=== PATIENT | female | born 1980 | race Caucasian/White ===

== ENCOUNTER 2018-08-12 14:37 | Outpatient (CLI) | payer OTHER, SELFPAY | END 2018-08-12 14:54 | disposition home or self-care (01) | LOC: UTC.OUT 14:38 | PROVIDERS: Visit Provider Psychiatry & Neurology Clinical Neurophysiology | DX: Z23 Encounter for immunization (principal) ==

== ENCOUNTER → 2021-02-21 08:28 | Outpatient (CLI) | payer OTHER, SELFPAY ==
[2021-02-21 08:56] LABS: Coronavirus 19, PCR Not Detected (NotDetected); Influenza A, PCR Not Detected (NotDetected); Influenza B, PCR Not Detected (NotDetected)
== END ==
PROVIDERS: PCP Family Medicine; Visit Provider Nurse Practitioner
DX: Z20.822 Contact with and (suspected) exposure to COVID-19 (principal)
CPT/HCPCS: C9803; U0003; U0005

== ENCOUNTER 2021-09-13 08:38 | Emergency (ER) | payer OTHER, SELFPAY ==
--- NOTE | 2021-09-13 08:43 | PC.NURSE ---
pt provided with paperwork to fill out
--- NOTE | 2021-09-13 08:48 | PC.NURSE ---
pt brought back to room 1
[2021-09-13 08:53] VITALS: BP 133/92; PULSE 88; RESP 18; TEMP 36.8; O2SAT 97; BMI 38.8
[2021-09-13 09:00] LABS: UTC Strep Screen (Rapid) Negative (Negative)
--- NOTE | 2021-09-13 09:00 | HMH.EDUTC ---
[facility] Disposition Clinical Impression: Viral syndrome, Exposure to COVID-19 virus Disposition: Home, Self-Care Condition on Discharge: Good Instructions: DI for Viral Syndrome, DI for COVID-19 (Suspected or Confirmed ), Preventing the Spread of Coronavirus Discharge Instructions Additional Instructions: Drink plenty of fluids. Take tylenol or ibuprofen for pain or fever. Take the medications as directed. Follow up with your regular doctor. GO TO THE ER FOR ANY WORSENING SYMPTOMS Quarantine until you know the results of your covid-19 test. Notify your school or workplace of your results and follow their instructions regarding return to work/school. Prescriptions: Ondansetron [Zofran 4mg ODT] 4 mg PO Q8HP PRN #12 tab PRN Reason: Nausea Transmission Status: Received by [facility] Benzonatate [Benzonatate 100mg cap] 100 mg PO TIDP PRN #30 cap PRN Reason: Cough Transmission Status: Received by [facility] Referrals: Oskar Perdomo MD [Primary Care Provider] - Forms: Work/School Release Time of Disposition: 09:08 Medical Decision Making - Medical Records Medical records reviewed: No: I reviewed the patient's medical records. - Andriy Inquiry Pt receiving controlled substance: No Vital Signs: 09/13/21 08:53 09/13/21 09:24 Temperature 98.2 F 98.2 F Temperature Source Oral Oral Pulse Rate 85 Pulse Rate [Left Radial] 88 Respiratory Rate 18 17 Blood Pressure 130/86 Blood Pressure [Right Arm] 133/92 H Blood Pressure Mean [Right Arm] 105 02 Sat by Pulse Oximetry 97 Oxygen Delivery Method Room Air Room Air - Lab Data Lab results reviewed: Yes: I reviewed the patient's lab results. Lab Results 09/13/21 08:51: Strep Scn Rapid Clinic Negative Orders (Tests/Meds): ORDERS Category Date Time Status Covid-19 Nasal PCR ([facility]) Routine Lab 09/13/21 08:52 Received Strep Screen Confirmation Stat Micro 09/13/21 08:51 Received [facility] HPI - General Stated complaint: Congestion;scratchy throat Time Seen by Provider: 09/13/21 09:00 Mode of Arrival: Ambulatory Source of Information: Patient Limitations: No Limitations Description of Symptoms (Recalled from Triage Doc. by RN): pt to [facility] c/o congestion and a sore throat since last night. HEENT Symptoms (Recalled from RN notes): Yes Resp Symptoms (Recalled from RN notes): Yes Skin Symptoms (Recalled from RN notes): No MS Symptoms (Recalled from RN notes): No Functional Status (Recalled from RN notes): na - History of Present Illness Provider Complaint: She states that she started feeling bad last night. She has had body aches, chills, low grade fever, scratchy throat and malaise. Both her mother and father have been sick with covid-19 and she has been around them. - Related Data Previous Rx's Medication Instructions Recorded Benzonatate [Benzonatate 100mg 100 mg PO TIDP PRN #30 cap 09/13/21 cap] Ondansetron [Zofran 4mg ODT] 4 mg PO Q8HP PRN #12 tab 09/13/21 Allergies Allergy/AdvReac Type Severity Reaction Status Date / Time Penicillins Allergy Verified 09/13/21 08:53 Sulfa (Sulfonamide Allergy Verified 09/13/21 08:53 Antibiotics) - Worker's Comp Is this a Worker's Comp case?: No [facility] History - Hepatitis A Screen Attestation statement:: This patient has been screened for Hepatitis A risk factors. 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
--- NOTE | 2021-09-13 09:02 | PC.NURSE ---
loom control chain builder at the bedside
[2021-09-13 09:24] VITALS: BP 130/86; PULSE 85; RESP 17; TEMP 36.8; O2SAT 98
== END 2021-09-13 09:25 | disposition home or self-care (01) ==
PROVIDERS: Emergency Provider Nurse Practitioner Family; PCP Family Medicine
DX: Z20.822 Contact with and (suspected) exposure to COVID-19 (principal); J02.9 Acute pharyngitis, unspecified; R09.89 Other specified symptoms and signs involving the circulatory and respiratory systems
CPT/HCPCS: 87880; 99212; C9803; G0463; U0003; U0005

== ENCOUNTER → 2022-05-01 10:00 | Outpatient (CLI) | payer OTHER, SELFPAY ==
[2022-05-01 10:41] LABS: MANUAL DIFFERENTIAL MANUAL DIFFERENTIAL (MANUAL DIFF); Microscopic, Urine URINE MICROSCOPIC (MICROSCOPIC)
[2022-05-01 10:54] LABS: Appearance,Urine CLEAR (Clear); Bilirubin,Urine Negative (Negative); Blood, Urine Negative (Negative); Color,Urine YELLOW (Yellow); Glucose,Urine (UA) Negative (Negative); Ketones,Urine Negative (Negative); Leukocyte Esterase,Urine Negative (Negative); Nitrate,Urine Negative (Negative); Protein,Urine Negative (Negative); Specific Gravity, Urine 1.025 (1.005-1.030); Urobilinogen,Urine 0.2 EU/dl (0.2)
[2022-05-01 10:57] LABS: Basophils # 0.1 K/mm3 (0-0.2); Basophils % 0.7 % (0.1-2.0); Eosinophils # 0.1 K/mm3 (0.0-0.4); Eosinophils % 1.1 % (0.1-12.0); Hematocrit 35.5 % (37.0-47.0); Hemoglobin 11.7 g/dL (12.2-16.2); Lymphocytes # 1.8 K/mm3 (0.7-4.5); Lymphocytes % 29.2 % (10-50); Mean Corpuscular HGB Conc 32.8 g/dL (31.8-35.4); Mean Corpuscular Hemoglobin 28.7 pg (27.0-31.2); Mean Corpuscular Volume 87.5 fl (81-99); Monocytes # 0.3 K/mm3 (0.1-1.0); Monocytes % 4.5 % (1.7-9.3); Neutrophils # 4.1 K/mm3 (1.8-7.8); Neutrophils % 64.5 % (37.0-80.0); Platelet Count 267 K/mm3 (142-424); Red Blood Count 4.06 M/mm3 (4.20-5.40); Red Cell Distribution Width 13.2 % (11.5-17.5); White Blood Count 6.3 K/mm3 (4.8-10.8)
[2022-05-01 11:05] LABS: Bacteria,Urine 3+ /lpf; RBC,Urine Occasional #/hpf (0-3)
[2022-05-01 11:08] LABS: Chloride 104 mmol/L (98-107); Sodium 139 mmol/L (136-145)
[2022-05-01 11:09] LABS: Hemoglobin A1C 5.1 % (4.0-6.0); Potassium 4.2 mmoL/L (3.5-5.1)
[2022-05-01 11:11] LABS: Alanine Aminotransferase 17 U/L (12-78); Albumin Level 4.2 g/dl (3.5-5.0); Albumin/Globulin Ratio 1.4 (1.1-1.8); Alkaline Phosphatase 105 U/L (38-126); Anion Gap 12.2 mEq/L (5-15); Aspartate Amino Transferase 24 U/L (14-36); Bilirubin,Total 0.4 mg/dl (0.2-1.3); Blood Urea Nitrogen 8 mg/dl (7-17); Calcium 8.5 mg/dl (8.4-10.2); Carbon Dioxide 27 mmol/L (22.0-30.0); Cholesterol 195 mg/dl (140-200); Estimated Glomerular Filt Rate 79 ml/min (>60); GFR (African American) 96 ML/MIN (>60); Globulin 3.1 g/dL (1.3-3.2); Glucose 85 mg/dl (74-100); Iron 33 ug/dL (37-170); Total Protein,Serum 7.3 g/dl (6.3-8.2); Triglycerides 94 mg/dl (30-150); VLDL Cholesterol 19 mg/dL (0-40)
[2022-05-01 11:12] LABS: Chol/HDL Ratio 3.1 (1-3.5); HDL Cholesterol 62 mg/dl (40-60)
[2022-05-01 11:21] LABS: Total Iron Binding Capacity 378 ug/dL (265-497)
[2022-05-01 11:23] LABS: Direct LDL Cholesterol 105.24 mg/dL (100-129)
[2022-05-01 11:43] LABS: Eosinophils % 3 % (0-3); Lymphocytes % 27 % (10-50); Monocytes % 4 % (2-9); Neutrophils % 66 % (42-76); Platelet Estimate Normal; RBC Morphology Normal; Thyroid Stimulating Hormone 1.14 uIU/mL (0.465-4.68); Total Cells Counted 100
== END ==
PROVIDERS: PCP Nurse Practitioner Family; Visit Provider Nurse Practitioner Family
DX: Z00.00 Encounter for general adult medical examination without abnormal findings (principal)
CPT/HCPCS: 36415; 80053; 80061; 81001; 83036; 83540; 83550; 84443; 85007; 85014; 85018; 85048; 85049; 87086; 87088; 87186

== ENCOUNTER → 2022-05-11 12:45 | Outpatient (CLI) | payer OTHER, SELFPAY ==
--- NOTE | 2022-05-11 | CA_ITS ---
APPROVED REPORT Exam: Exercise Treadmill Technologist: Meghan Goode, Ht: 5 ft 0 in Wt: 197 lbs BSA: 1.86 m2 HR: 90 bpm BP: 132/85 mmHg Medical History Medications: Ferrous fumarate,,,,, Stress Test Details Test: Mikel Reason for pharmacologic stress test: physical limitation. HR Resting HR: 112 bpm Max Heart Rate (APMHR): 180.125399 bpm Max HR Achieved: 189 bpm Target HR (85% APMHR): 153.414628 bpm % of APMHR: 105.00 Recovery HR: 108 bpm BP Resting BP: 140/81 mmHg Max BP: 160/90 mmHg Recovery BP: 114.0/54.0 mmHg ECG Resting ECG: NSR Clinical Reason for Termination: Dyspnea Exercise duration: 09:00 min Highest Stage Achieved: III Exercise capacity: 10.1 METs Stress ECG Conclusion 9 min Max HR: 189 % of PM: 123 Max BP:160/90 METs: 10.1 Test stopped due to: SOA Symptoms: No CP Arrhythmias/Ectopy: None ST-T Changes: <1.5mm ST Segment changes Conclusion: Negative Test Summary REST . . . . . . . Sitting REST . . . . . . . Standing REST 03:29 0.0 1.2 112 . 140/ 81 . . Stage 1 01:00 10.0 1.7 121 . . . . Stage 1 02:00 10.0 1.7 133 . . . . Stage 1 03:00 10.0 1.7 143 . 150/ 92 . . Stage 2 01:00 12.0 2.5 146 . . . . Stage 2 02:00 12.0 2.5 155 . 160/ 90 . . Stage 2 03:00 12.0 2.5 160 . 160/ 90 . . Stage 3 01:00 14.0 3.4 175 . . . . Stage 3 02:00 14.0 3.4 181 . . . . Stage 3 03:00 14.0 3.4 186 . . . Stop exercise at 09:00 RECOVERY 01:00 0.0 0.0 150 . . . . RECOVERY 02:00 0.0 0.0 129 . . . . RECOVERY 03:00 0.0 0.0 121 . 151/ 63 . . RECOVERY 04:00 0.0 0.0 113 . 151/ 63 . . RECOVERY 05:00 0.0 0.0 109 . 151/ 63 . . RECOVERY 05:26 0.0 0.0 110 . 114/ 54 . . Electronically signed by : Stone Velarde MD 05/11/2022 14:31:12
--- NOTE | 2022-05-11 12:51 | CA_ITS ---
APPROVED REPORT EXAM: Comprehensive 2D, Doppler, and color-flow Echocardiogram [place] Tower Loader: Myriam Warren RT(R) Ht: 5 ft 0 in Wt: 197lbs BSA: 1.86 BP: 146/94 mmHg Indications: CP, family history of HD, abn EKG Stress Test Details HR Max Heart Rate (APMHR): 180.269772 bpm Target HR (85% APMHR): 153.333203 bpm BP ECG Conclusion Was negative1. Patient exercised on Mikel protocol achieved 10.1 METs of workload on treadmill, the blood pressure response to exercise was adequate, there was no exercise-induced chest discomfort, for ischemia. 2. Resting echocardiogram showed normal left ventricular size and function with no regional wall motion abnormality, estimated ejection fraction 55%, with exercise there is increase in contractility of all the segments of the myocardium with hyperdynamic left ventricular systolic response, no regional wall motion abnormality to suggest underlying ischemic heart disease. 3. Normal exercise stress echo. Normal ejection fraction. Electronically signed by : Stone Velarde MD 05/11/2022 14:35:30
--- NOTE | 2022-05-11 12:51 | CA_ITS ---
APPROVED REPORT EXAM: Comprehensive 2D, Doppler, and color-flow Echocardiogram Felt Washing Machine Tender: Myriam Warren RT(R) Ht: 5 ft 0 in Wt: 197lbs BSA: 1.86 BP: 146/94 mmHg Indications: cp, abn EKG, family history of HD 2D Dimensions LVOT 2.02 cm (M/F) 1.5-2.5 LA Volume 31.80 mL LA Volume Index 17.10 mL/m2 (M/F) 16-34 M-Mode Dimensions RVDd 3.18 cm (0.9-2.6) LA Diam 3.44 cm (1.9-4.0) LVDd 5.19 cm (3.5-5.7) Ao Diam 2.62 cm (2.0-3.7) LVDs 3.83 cm (3.5-5.7) IVSd 0.57 cm (0.6-1.1) PWd 0.64 cm (0.6-1.1) EF (Teich) 51.00% FS 26.20% EDV (Teich) 128.90 mL ESV (Teich) 63.10 mL LV Diastology E Decel Time 157.00 (160-240 msec) E/A Ratio 1.19 Mitral Valve MV A Velocity 63.00 (40-130 cm/s) E/A Ratio 1.19 MV Decel. Time 157.00 (160-240 ms) Left Ventricle Left atrium is normal size left ventricle is normal size, estimated ejection fraction 55% with no regional wall motion abnormality, diastolic parameters are within normal range. Right Ventricle Right atrium and right ventricular normal size and contractility. Aortic Valve Aortic valve is minimally thickened and calcified without aortic stenosis or aortic insufficiency. Mitral Valve Mitral valve is grossly normal, there is trace mitral regurgitation. Tricuspid Valve Tricuspid grossly normal, there is trace tricuspid regurgitation, tricuspid regurgitation jet velocity is inadequate for calculation of the right ventricular systolic pressure. Pulmonic Valve Pulmonic valve is poorly visualized. Great Vessels Aortic root is normal size. Inferior vena cava normal size with normal inspiratory collapse. Pericardium No significant pericardial effusion noted. Conclusion 1. Normal left ventricular size preserved left ventricular systolic function, estimated ejection fraction of 55% with no regional wall motion abnormality, diastolic parameters are within normal range. 2. Trace mitral and tricuspid regurgitation. 3. No significant pericardial effusion noted. 4. Inferior vena cava is normal size with normal inspiratory collapse. Electronically signed by : Stone Velarde MD 05/11/2022 14:33:50
== END ==
PROVIDERS: PCP Nurse Practitioner Family; Visit Provider Nurse Practitioner Family
DX: R07.9 Chest pain, unspecified (principal); R94.31 Abnormal electrocardiogram [ECG] [EKG]; Z82.49 Family history of ischemic heart disease and other diseases of the circulatory system
CPT/HCPCS: 93017; 93306; 93350

== ENCOUNTER → 2022-05-15 10:17 | Outpatient (CLI) | payer OTHER, SELFPAY ==
--- NOTE | 2022-05-15 10:24 | MM_ITS ---
PROCEDURE INFORMATION: Exam: MG Bilateral Screening 3D Mammography Exam date and time: 05/15/2022 10:20 AM Age: 41 years old Clinical indication: Screening mammogram. TECHNIQUE: Imaging protocol: Bilateral Screening tomosynthesis and 2D mammography including computer-aided detection (CAD) when performed. COMPARISON: No relevant prior studies available. FINDINGS: MAMMOGRAPHY: Breast composition: There are scattered areas of fibroglandular density. Mass: None. Architectural distortion: No new or suspicious architectural distortion. Calcifications: No new or suspicious calcifications are present Asymmetric density: No new or suspicious asymmetric density is present Skin thickening: None. Axillary adenopathy: None. IMPRESSION: No mammographic evidence of malignancy. Recommend annual screening mammography unless otherwise clinically indicated. ASSESSMENT: BI-RADS category 1: Negative
== END ==
PROVIDERS: PCP Nurse Practitioner Family; Visit Provider Nurse Practitioner Family
DX: Z12.31 Encounter for screening mammogram for malignant neoplasm of breast (principal)
CPT/HCPCS: 77063; 77067

== ENCOUNTER → 2022-06-28 14:48 | Outpatient (CLI) | payer OTHER, SELFPAY ==
--- NOTE | 2022-06-28 14:48 | US_ITS ---
FINAL REPORT CLINICAL HISTORY: Menorrhagia FINDINGS: Transvaginal sonographic images of the pelvis were obtained. The uterus measures 10.0 x 5.1 x 6.0 cm. The endometrium measures 10 mm. There is a small amount of fluid in the endometrial cavity. The right ovary measures up to 2.9 cm. The left ovary measures up to 2.2 cm. There are small cysts or follicles in both ovaries. IMPRESSION: Small amount of fluid in the endometrial cavity, may be physiologic. Reviewed, Interpreted and Dictated by Rio Zambrano MD Transcribed by Cindy Urbano Authenticated and [facility]
== END ==
PROVIDERS: PCP Nurse Practitioner Family; Visit Provider Nurse Practitioner Obstetrics & Gynecology
DX: N92.0 Excessive and frequent menstruation with regular cycle (principal)
CPT/HCPCS: 76830

== ENCOUNTER 2022-11-05 08:08 | Emergency (ER) | payer OTHER, SELFPAY ==
[2022-11-05 08:45] VITALS: BP 141/94; PULSE 97; RESP 20; TEMP 36.4; O2SAT 97; BMI 38.9
--- NOTE | 2022-11-05 08:58 | EXP.UTC ---
Discharge Plan Disposition Patient Disposition: Home, Self-Care Condition: Good Prescriptions Prescriptions: New azithromycin [Zithromax Z-Udsty] 250 mg tablet See Rx Instructions .ROUTE .COMPLEX 5 Days Qty: 6 0RF Rx Instructions: For 250 mg dose pack: take 500 mg today (day 1), then 250 mg for 4 days (days 2-5) methylprednisolone [Medrol (Dusty)] 4 mg tablets,dose pack See Rx Instructions .Route .COMPLEX 6 Days Qty: 21 0RF Rx Instructions: taper pack; fluticasone propionate [Flonase Allergy Relief] 50 mcg/actuation spray,suspension 1 spray intranasal DAILY Qty: 16 0RF Rx Instructions: administer into each nostril No Action omeprazole 40 mg capsule,delayed release(DR/EC) 40 mg PO DAILY Qty: 90 3RF ferrous fumarate 325 mg (106 mg iron) tablet 325 mg PO DAILY norgestimate-ethinyl estradiol [Sprintec (28)] 0.25-35 mg-mcg tablet 1 tab PO DAILY Qty: 28 11RF Referrals Follow up/Referrals: Mayra Angel APRN [Primary Care Provider] - See instructions Activity Restrictions/Add. Instructions Additional Instructions/Restrictions: *Monitor Temp, Over the counter Motrin or Tylenol as directed/as needed Tylenol every 4 hours and Motrin every 6 hours (as long as your family doctor has told you that you can take it) for fever or pain. and straight to ER if unable to lower temp less than 101.0 after medication given *Warm salt water gargles may help to soothe the throat *Throat Lozenges? *Warm fluids like tea with honey may help to soothe the throat? *Sleep elevated *Humidifier/Vaporizer *Flonase 2 sprays in each nostril daily but be aware that it may take 2-3 days before you notice improvement Follow up IMMEDIATELY for new or worsening symptoms or no Noticeable improvement over the next 48-72 hours. 911 for difficulty breathing or swallowing Clinical Impressions Clinical Impression: Sinus infection Qualifiers: Sinusitis location: unspecified location Chronicity: unspecified Qualified Code(s): J32.9 - Chronic sinusitis, unspecified Instructions Patient Instructions: DI for Sinusitis, Sinusitis Discharge ED Provider: Louisa Gupta [facility] HPI General Stated complaint: congestion Mode of Arrival: Ambulatory Source of Information: Patient Limitations: No Limitations Time Seen by Provider: 11/05/22 08:58 Description of Symptoms (Recalled from Triage Doc. by RN): PATIENT C/O CONGESTION AND HEADACHE SINCE YESTERDAY HEENT Symptoms (Recalled from RN notes): Yes Resp Symptoms (Recalled from RN notes): No Skin Symptoms (Recalled from RN notes): No MS Symptoms (Recalled from RN notes): No Functional Status (Recalled from RN notes): WNL History of Present Illness Provider Complaint: Patient states that she thinks she has a sinus infection States that for two weeks she has been fighting sinus congestion and pressure that got worse for the last couple of days so today she came in Related Data Home Medications Medication Instructions Recorded Confirmed ferrous fumarate 325 mg (106 mg 325 mg PO DAILY 05/03/22 08/29/22 iron) tablet Previous Rx's Medication Instructions Recorded omeprazole 40 mg capsule,delayed 40 mg PO DAILY #90 caps 05/17/22 release norgestimate 0.25 mg-ethinyl 1 tab PO DAILY #28 tabs 06/27/22 estradiol 35 mcg tablet (Sprintec (28)) azithromycin 250 mg tablet See Rx Instructions PO .COMPLEX 5 11/05/22 (Zithromax Z-Dusty) days #6 tabs fluticasone propionate 50 1 spray intranasal DAILY #16 grams 11/05/22 mcg/actuation nasal spray,suspension (Flonase Allergy Relief) methylprednisolone 4 mg tablets in See Rx Instructions .Route 11/05/22 a dose pack (Medrol (Dusty)) .COMPLEX 6 days #21 tabs Allergies Allergy/AdvReac Type Severity Reaction Status Date / Time Penicillins Allergy Verified 08/29/22 15:16 Sulfa (Sulfonamide Allergy Verified 08/29/22 15:16 Antibiotics) Worker's Comp Is t
[2022-11-05 09:08] VITALS: BP 141/94; PULSE 97; RESP 20; TEMP 36.4; O2SAT 97
== END 2022-11-05 09:11 | disposition home or self-care (01) ==
PROVIDERS: Emergency Provider Nurse Practitioner; PCP Nurse Practitioner Family
DX: J01.90 Acute sinusitis, unspecified (principal); I10 Essential (primary) hypertension
CPT/HCPCS: 99212; 99214; G0463

== ENCOUNTER 2023-01-27 19:01 | Emergency (ER) | payer OTHER, SELFPAY ==
[2023-01-27 19:10] VITALS: BP 129/87; PULSE 134; RESP 18; TEMP 37.2; O2SAT 95; BMI 39.0
--- NOTE | 2023-01-27 19:12 | EXP.UTC ---
Discharge Plan Prescriptions Prescriptions: No Action omeprazole 40 mg capsule,delayed release(DR/EC) 40 mg PO DAILY Qty: 90 3RF ferrous fumarate 325 mg (106 mg iron) tablet 325 mg PO DAILY norgestimate-ethinyl estradiol [Sprintec (28)] 0.25-35 mg-mcg tablet 1 tab PO DAILY Qty: 28 11RF Referrals Follow up/Referrals: Mayra Angel APRN [Primary Care Provider] - See instructions Discharge ED Provider: Bobby Blair [facility] [place] General Stated complaint: fever, LAUREN, body aches Time Seen by Provider: 01/27/23 19:26 History of Present Illness Provider Complaint: She states that for the past 1 day she has had a low grade fever, chills, headache and body aches. She denies significant chest or sinus congestion. Related Data Home Medications Medication Instructions Recorded Confirmed ferrous fumarate 325 mg (106 mg 325 mg PO DAILY 05/03/22 01/27/23 iron) tablet Previous Rx's Medication Instructions Recorded omeprazole 40 mg capsule,delayed 40 mg PO DAILY #90 caps 05/17/22 release norgestimate 0.25 mg-ethinyl 1 tab PO DAILY #28 tabs 06/27/22 estradiol 35 mcg tablet (Sprintec (28)) Allergies Allergy/AdvReac Type Severity Reaction Status Date / Time Penicillins Allergy Verified 01/27/23 19:13 Sulfa (Sulfonamide Allergy Verified 01/27/23 19:13 Antibiotics) [facility] Disclaimer: The information contained in this section may have been updated after the patient was seen, as this information can be updated by other users. Medical History Abnormal electrocardiogram [ECG] [EKG] Exposure to COVID-19 virus Family history of ischemic heart disease HTN (hypertension), benign Need for hepatitis A immunization No active medical problems Viral syndrome Surgical History Encounter for Essure implantation Family History Father Diabetes Heart attack Hypertension Hyperlipidemia Coronary artery disease Mother Coronary artery disease Diabetes Hyperlipidemia Social History Smoking Status: Never smoker alcohol intake: never substance use type: denies use current occupational status: employed Travel in the last 8 weeks: Inside the [place] household members: spouse marital status: number of children: 2 ROS Obtained: Yes All systems reviewed & no additional complaints except as documented Constitutional Constitutional: Reports chills and Reports fever(s) Eyes Eyes: Denies eye discharge ENT Ears, Nose, Mouth, and Throat: Reports as per HPI Cardiovascular Cardiovascular: Denies chest pain Respiratory Respiratory: Denies chest congestion and Reports cough Gastrointestinal Gastrointestingal: Reports nausea; Denies abdominal pain, constipation, cramping, diarrhea or vomiting Musculoskeletal Musculoskeletal: Denies arthralgias Integumentary/Breasts Skin/Breast: Denies rash Neurologic Neurologic: Denies paresthesias Physical Exam General General appearance: alert and in no apparent distress Head Head exam: atraumatic, normocephalic and normal inspection Eye Eye exam: Present normal appearance, PERRL and EOMI ENT ENT exam: Present normal exam, normal oropharynx, mucous membranes moist, TM's normal bilaterally and normal external ear exam Neck Neck exam: Present normal inspection, full ROM and trachea midline; Absent meningismus or lymphadenopathy Chest Chest inspection: Present normal inspection and symmetric chest wall rise; Absent tenderness Respiratory Respiratory exam: Present normal lung sounds bilaterally; Absent respiratory distress Cardiovascular Cardiovascular exam: Present regular rate and normal rhythm; Absent JVD Abdominal Exam Abdominal exam: Present soft and normal bowel sounds; Absent distention, tenderness or guarding Extremiti
[2023-01-27 19:20] LABS: UTC Influenza A Antigen Negative (Negative)
[2023-01-27 19:21] LABS: UTC Influenza B Antigen Negative (Negative)
[2023-01-27 19:46] VITALS: BP 168/84; PULSE 92; RESP 18; TEMP 36.9; O2SAT 100
== END 2023-01-27 19:46 | disposition home or self-care (01) ==
PROVIDERS: Emergency Provider Nurse Practitioner Family; PCP Nurse Practitioner Family
DX: U07.1 COVID-19 (principal); R50.9 Fever, unspecified; R51.9 Headache, unspecified; M79.18 Myalgia, other site; I10 Essential (primary) hypertension
CPT/HCPCS: 87635; 87804; 99212; 99214; G0463

== ENCOUNTER 2023-05-02 08:20 | Emergency (ER) | payer OTHER, SELFPAY ==
[2023-05-02] VITALS (11 sets, daily range): BP systolic 110–172; BP diastolic 69–100; PULSE 80–105; RESP 14–24; TEMP 36.7–36.9; O2SAT 95–100; BMI 37.0
--- NOTE | 2023-05-02 08:26 | ECG_ITS ---
APPROVED REPORT Exam: Resting ECG HR:87 bpm ECG Measurements Heart Rate [address] 136 P 83 QRSd 92 QRS 68 QT 345 T 66 QTc 389 Conclusion SINUS RHYTHM WITH SINUS ARRHYTHMIA NORMAL ECG UNCONFIRMED REPORT Electronically signed by : Bobby Vicente, 05/02/2023 15:19:34
--- NOTE | 2023-05-02 08:39 | XR_ITS ---
FINAL REPORT CLINICAL HISTORY: Shortness of breath COMPARISON: None FINDINGS: A single portable view of the chest was obtained. The heart size and pulmonary vascularity are within normal limits. The mediastinum is within normal limits. No acute pulmonary abnormality is identified. The bony thorax is intact. IMPRESSION: No active cardiopulmonary disease. Reviewed, Interpreted and Dictated by Gaurang Tidwell III, MD Transcribed by Moira Bashir Authenticated and [facility]
--- NOTE | 2023-05-02 09:01 | HMH.EDGENADL ---
Discharge Plan Disposition Patient Disposition: Home, Self-Care Prescriptions Prescriptions: No Action omeprazole 40 mg capsule,delayed release(DR/EC) 40 mg PO DAILY Qty: 90 3RF ferrous fumarate 325 mg (106 mg iron) tablet 325 mg PO DAILY norgestimate-ethinyl estradiol [Sprintec (28)] 0.25-35 mg-mcg tablet 1 tab PO DAILY Qty: 28 11RF benzonatate [benzonatate] 100 mg capsule 100 mg PO TIDP PRN (Reason: Cough) Qty: 30 0RF ondansetron 4 mg Tablet,Disintegrating 4 mg PO Q8H PRN (Reason: Nausea) Qty: 12 0RF Referrals Follow up/Referrals: Ronnie Guadalupe MD [Staff Physician] - See instructions Mayra Angel APRN [Primary Care Provider] - See instructions Activity Restrictions/Add. Instructions Additional Instructions/Restrictions: No evidence of acute cardiopulmonary emergency today please follow-up with Dr. Guadalupe for further discussion of noninvasive cardiac imaging or further provocative testing. Clinical Impressions Clinical Impression: Chest pain Discharge ED Provider: Oleksandr Vicente General Adult HPI General Chief complaint: Chest Pain Stated complaint: Pain in Left Shoulder Time Seen by Provider: 05/02/23 08:29 History of Present Illness HPI narrative: Patient is a 42-year-old female present today with chest pain. States she was in an argument with her children yesterday got very heated and was very upset began having chest pain the left side of her chest radiating to her arms and into her jaw lasted 30 minutes to an hour was still persistent when she went to bed. Woke up not feeling well had a little bit of visual abnormalities also still has having some arm discomfort and arm tingling. She is still symptomatic at the moment. No exertional symptoms or diaphoresis or shortness of breath associate with this. No history of DVT or PE lower extremity swelling hemoptysis prolonged immobilization etc. She is however on combined oral contraceptive pills. She had a normal exercise stress test 1 year ago has never had a heart cath or any other noninvasive cardiac imaging in the past. She has not had any aspirin today. Related Data Home Medications Medication Instructions Recorded Confirmed ferrous fumarate 325 mg (106 mg 325 mg PO DAILY 05/03/22 01/27/23 iron) tablet Previous Rx's Medication Instructions Recorded omeprazole 40 mg capsule,delayed 40 mg PO DAILY #90 caps 05/17/22 release norgestimate 0.25 mg-ethinyl 1 tab PO DAILY #28 tabs 06/27/22 estradiol 35 mcg tablet (Sprintec (28)) benzonatate 100 mg capsule 100 mg PO TIDP PRN Cough #30 caps 01/27/23 ondansetron 4 mg disintegrating 4 mg PO Q8H PRN Nausea #12 tabs 01/27/23 tablet Allergies Allergy/AdvReac Type Severity Reaction Status Date / Time Penicillins Allergy Verified 01/27/23 19:13 Sulfa (Sulfonamide Allergy Verified 01/27/23 19:13 Antibiotics) [facility] Disclaimer: The information contained in this section may have been updated after the patient was seen, as this information can be updated by other users. Medical History Abnormal electrocardiogram [ECG] [EKG] Exposure to COVID-19 virus Family history of ischemic heart disease HTN (hypertension), benign Need for hepatitis A immunization No active medical problems Viral syndrome Surgical History Encounter for Essure implantation Family History Father Diabetes Heart attack Hypertension Hyperlipidemia Coronary artery disease Mother Coronary artery disease Diabetes Hyperlipidemia Social History Smoking Status: Never smoker alcohol intake: never substance use type: denies use current occupational status: employed Travel in the last 8 weeks: Inside the [place] household members: spouse marital status: number of children: 2 ROS Obtained: Yes All systems reviewed & no additional complaints except as documented Physical Exam General General appearance: alert Respiratory Respiratory exam: Present normal lung sounds bilaterally and respiratory distress Cardiovascular Cardiovascular exam: Present regular rate; Absent normal rhythm Neurological Exam Neurological exam: Present alert and oriented X3 Medical Decision Making Andriy Inquiry Pt receiving controlled substance: No Vital Signs: 05/02/23 08:22 05/02/23 08:25 05/02/23 09:04 Temperature 98.5 F Temperature Source Oral Pulse Rate 105 H Pulse Rate [Right] 96 H Respiratory Rate 17 24 19 Blood Pressure 172/100 H 142/88 H Blood Pressure [Right Arm] 172/100 H Blood Pressure Mean [Right Arm] 124 Blood Pressure Source [Right Arm] Automatic Cuff 02 Sat by Pulse Oximetry 100 97 Oxygen Delivery Method Room Air 05/02/23 09:30 05/02/23 10:00 05/02/23 10:30 Temperature Temperature Source Pulse Rate 88 86 94 H Pulse Rate [Right] Respiratory Rate 16 16 16 Blood Pressure 122/86 128/78 115/71 Blood Pressure [Right Arm] Blood Pressure Mean [Right Arm] Blood Pressure Source [Right Arm] 02 Sat by Pulse Oximetry 97 98 97 Oxygen Delivery Method Room Air Room Air Room Air 05/02/23 11:00 05/02/23 11:30 05/02/23 12:00 Temperature Temperature Source Pulse Rate 80 Pulse Rate [Right] Respiratory Rate 17 16 14 Blood Pressure 110/74 120/75 121/69 Blood Pressure [Right Arm] Blood Pressure Mean [Right Arm] Blood Pressure Source [Right Arm] 02 Sat by Pulse Oximetry 95 Oxygen Delivery Method Room Air Lab Data Lab results reviewed: Yes I reviewed the patient's lab results. Lab Results 05/02/23 08:42: WBC 5.3, RBC 4.12 L, Hgb 12.1 L, Hct 37.8, MCV 91.8, MCH 29.3, MCHC 31.9, RDW 13.6, Plt Count 213, MPV 8.1, Neut % (Auto) 67.7, Lymph % (Auto) 26.6, [place] % (Auto) 5.1, Eos % (Auto) 0.2, Baso % (Auto) 0.4, Neut # (Auto) 3.6, Lymph # (Auto) 1.4, [place] # (Auto) 0.3, Eos # (Auto) 0.0, Baso # (Auto) 0.0, D-Dimer 0.46, Sodium 140, Potassium 3.8, Chloride 109 H, Carbon Dioxide 24, Anion Gap 10.8, BUN 6 L, Creatinine 0.80, Estimated Creat Clear 126, Estimated GFR 79, Est GFR ( Amer) 96, Glucose 105 H, Calcium 9.8, Total Bilirubin 0.9, AST 30, ALT 22, Alkaline Phosphatase 83, Troponin I < 0.01, Total Protein 7.3, Albumin 4.1, Globulin 3.2, Albumin/Globulin Ratio 1.3 05/02/23 11:25: Troponin I < 0.01 05/02/23 08:42 05/02/23 08:42 Orders (Tests/Meds): ED MEDICATIONS Generic Name Dose Route Start Last Admin Trade Name Armand PRN Reason Stop Dose Admin Sodium Chloride 10 ml 05/02/23 09:09 Sodium Chloride 0.9% 10ml Flush Syringe IV 06/01/23 09:08 NEEDED PRN Maintain IV Site Discontinued Medications Generic Name Dose Route Start Last Admin Trade Name Freq PRN Reason Stop Dose Admin Aspirin 324 mg 05/02/23 08:39 05/02/23 09:02 Aspirin 81mg Chewable Tablet PO 05/02/23 08:40 324 mg ONCE ONE Administration ORDERS Category Date Time Status CXR --portable [XR chest portable] Stat Exams 05/02/23 08:39 Completed CBC w/Auto Diff [Complete Blood Count Auto Diff] Stat Lab 05/02/23 08:42 Completed CMP [Comprehensive Metabolic Panel] Stat Lab 05/02/23 08:42 Completed D-Dimer Stat Lab 05/02/23 08:42 Completed Trop I [Troponin I] Stat Lab 05/02/23 08:42 Completed Troponin I Q3H Lab 05/02/23 11:25 Completed Troponin I Q3H Lab 05/02/23 14:45 Ordered ECG Data Tracing #1: I reviewed this ECG and interpreted as documented below: Ventricular rate of 87 no acute ischemic changes noted normal axis no conduction abnormalities overall normal EKG HEART Score History (anamnesis): Slightly suspicious ECG: Normal Age: <45 years Risk factors: No known risk factors Troponin: </= normal limit HEART Score: 0 Medical Decision Narrative: Patient is a 42-year-old female presents today with chest pain. EKG was nonischemic. Will get serial troponins to rule out acute coronary syndrome. Symptoms began yesterday evening I would expect the first 1 to be positive however there is been some intermittent component of this and will get a second to be safe. She is on control pills cannot use pulmonary embolism rule out criteria we will get a D-dimer with a cutoff of 1.[address] PE imaging after the screening test. I suspect majority this is from stress. If her workup is negative I will recommend that she follow-up outpatient for more noninvasive cardiac imaging or provocative testing. She will be given a referral to cardiology. Reassessment 947 initial troponin and D-dimer negative. Chest x-ray performed in person interpreted shows no acute cardiopulmonary emergency. ED observation order placed at 9:45 AM pending second troponin. Reassessment 12:21 PM after several hours of observation patient remains asymptomatic and well-appearing serial troponins are negative she is been advised to follow-up with Dr. Guadalupe and his cardiology team outpatient and return with any worsening symptoms. Critical Care Critical Care Time Critical Care Time: No
[2023-05-02] MEDS: ASPIRIN 81MG CHEWABLE TABLET 324 MG PO (09:02)
[2023-05-02 09:10] LABS: Basophils % 0.4 % (0.1-2.0); Eosinophils % 0.2 % (0.1-12.0); Hematocrit 37.8 % (37.0-47.0); Hemoglobin 12.1 g/dL (12.2-16.2); Lymphocytes # 1.4 K/mm3 (0.7-4.5); Lymphocytes % 26.6 % (10-50); Mean Corpuscular HGB Conc 31.9 g/dL (31.8-35.4); Mean Corpuscular Hemoglobin 29.3 pg (27.0-31.2); Mean Corpuscular Volume 91.8 fl (81-99); Mean Platelet Volume 8.1 fl (7.4-10.4); Monocytes # 0.3 K/mm3 (0.1-1.0); Monocytes % 5.1 % (1.7-9.3); Neutrophils # 3.6 K/mm3 (1.8-7.8); Neutrophils % 67.7 % (37.0-80.0); Platelet Count 213 K/mm3 (142-424); Red Blood Count 4.12 M/mm3 (4.20-5.40); Red Cell Distribution Width 13.6 % (11.5-17.5); White Blood Count 5.3 K/mm3 (4.8-10.8)
[2023-05-02 09:14] LABS: Alanine Aminotransferase 22 U/L (12-78); Albumin Level 4.1 g/dl (3.5-5.0); Albumin/Globulin Ratio 1.3 (1.1-1.8); Alkaline Phosphatase 83 U/L (38-126); Anion Gap 10.8 mEq/L (5-15); Aspartate Amino Transferase 30 U/L (14-36); Bilirubin,Total 0.9 mg/dl (0.2-1.3); Blood Urea Nitrogen 6 mg/dl (7-17); Calcium 9.8 mg/dl (8.4-10.2); Carbon Dioxide 24 mmol/L (22.0-30.0); Chloride 109 mmol/L (98-107); Creatinine Clearance Estimated 126 mL/min (50-200); Estimated Glomerular Filt Rate 79 ml/min (>60); GFR (African American) 96 ML/MIN (>60); Globulin 3.2 g/dL (1.3-3.2); Glucose 105 mg/dl (74-100); Potassium 3.8 mmoL/L (3.5-5.1); Sodium 140 mmol/L (136-145); Total Protein,Serum 7.3 g/dl (6.3-8.2)
[2023-05-02 09:18] LABS: D-Dimer 0.46 ug/mL (0.0-0.5)
--- NOTE | 2023-05-02 09:24 | PC.NURSE ---
ROUNDED ON PT NO NEEDS AT THIS TIME, BRISEIDA AT BS AND CALL LIGHT IN REACH
[2023-05-02 09:25] LABS: Troponin I < 0.01 ng/ml (0.00-0.034)
--- NOTE | 2023-05-02 10:42 | PC.NURSE ---
CHECKED ON PT SHE IS ASLEEP IN BED CALL LIGHT IN REACH
--- NOTE | 2023-05-02 11:54 | PC.NURSE ---
rounded on pt, she is sleeping comfortably at this time.
[2023-05-02 11:56] LABS: Troponin I < 0.01 ng/ml (0.00-0.034)
== END 2023-05-02 12:45 | disposition home or self-care (01) ==
PROVIDERS: Emergency Provider Student in an Organized Health Care Education/Training Program; PCP Nurse Practitioner Family
DX: R07.9 Chest pain, unspecified (principal); M25.512 Pain in left shoulder; I10 Essential (primary) hypertension
CPT/HCPCS: 71045; 80053; 84484; 85025; 85378; 93005; 99284

== ENCOUNTER 2023-05-13 08:41 | Outpatient (CLI) | payer OTHER, SELFPAY ==
[2023-05-13 10:16] LABS: Anion Gap 12.9 mEq/L (5-15); Blood Urea Nitrogen 7 mg/dl (7-17); Calcium 9.5 mg/dl (8.4-10.2); Carbon Dioxide 25 mmol/L (22.0-30.0); Chloride 106 mmol/L (98-107); Estimated Glomerular Filt Rate 79 ml/min (>60); GFR (African American) 96 ML/MIN (>60); Glucose 101 mg/dl (74-100); Potassium 3.9 mmoL/L (3.5-5.1); Sodium 140 mmol/L (136-145)
[2023-05-13 12:10] LABS: Chol/HDL Ratio 3.5 (1-3.5); Cholesterol 181 mg/dl (140-200); HDL Cholesterol 51 mg/dl (40-60); Iron 64 ug/dL (37-170); Triglycerides 107 mg/dl (30-150); VLDL Cholesterol 21 mg/dL (0-40)
[2023-05-13 12:19] LABS: Total Iron Binding Capacity 345 ug/dL (265-497)
[2023-05-13 12:20] LABS: Direct LDL Cholesterol 85.94 mg/dL (100-129)
[2023-05-13 12:29] LABS: Free T4 (Free Thyroxine) 1.56 ng/dl (0.78-2.19)
[2023-05-13 12:42] LABS: Thyroid Stimulating Hormone 1.19 uIU/mL (0.465-4.68)
[2023-05-13 12:46] LABS: Ferritin 40.4 ng/ml (6.24-137)
== END 2023-05-13 23:59 ==
PROVIDERS: PCP Nurse Practitioner Family; Visit Provider Internal Medicine
DX: R53.83 Other fatigue (principal); R07.9 Chest pain, unspecified; D64.9 Anemia, unspecified; Z13.220 Encounter for screening for lipoid disorders
CPT/HCPCS: 36415; 80048; 80061; 82728; 83540; 83550; 84439; 84443

== ENCOUNTER 2023-05-15 11:53 | Outpatient (CLI) | payer OTHER, SELFPAY ==
--- NOTE | 2023-05-15 11:53 | CT_ITS ---
APPROVED REPORT Pesticide Use Medical Coordinator: CLINICAL INDICATION Chest Pain TECHNIQUE Image Acquisition: A 128 slice MDCT scanner ([employer]a View) was used for data acquisition. A noncontrast coronary calcium scan was performed. A CT attenuation threshold of 130 Hounsfield units (HU) was used for the detection of calcium in contiguous voxels of 1 sq mm in area to be counted as individual lesions. Bolus tracking in the ascending aorta with a threshold of 180 HU was performed. Immediately afterwards, ECG synchronized cardiac CT was then performed from the cardiac base to apex using retrospective gating with ECG tube current modulation. A total of 85 mL of Isovue 370 mg/mL contrast medium was administered at 5 mL/sec followed by a saline flush using a biphasic injection protocol. A tube voltage of 120 KVp was used. The patient received the following medications prior to the cardiac CT. 125 mg of oral metoprolol 5 mg of intravenous metoprolol 15 mg of oral ivabradine 0.8 mg of sublingual nitroglycerin The average heart rate at the time of acquisition was 57 bpm and regular. Image Reconstruction Transaxial images were reconstructed at 0.67 mm slide thickness. Data was reviewed interactively on an advanced workstation capable of 2 and 3-dimensional displays in all conventional reconstruction formats, including multiplanar reformations, maximum intensity projections, curved multiplanar reformations, and volume rendered reconstructions. When applicable, selected routine images describing the relevant coronary anatomy and pathology were saved and sent to PACS. Complications None Technical Quality Overall image quality was good. Coronary artery opacification was adequate. Total DLP (Dose-Length Product) is 1605.4 mGy-cm. The reported value represents the total of one or more individual components during the CT acquisition of this date and at this time, and as such, the same value may appear in more than one CT report depending on the interpreting/reporting physicians. COMPARISON None FINDINGS CT Coronary Calcium Scoring LMA (Left Main Artery) = 0 LAD (Left Anterior Descending) = 0 LCX (Left Coronary Circumflex) = 0 RCA (Right Coronary Artery) = 0 Total Calcium Score = 0 using the AJ-130 method. The interpretation of the calcium heart score is based on the following continuum*: 0 = no calcified plaque detected (risk of coronary artery disease is very low ??? less than 5%) 1-10 = calcium detected in extremely minimal levels (risk of coronary diseases is still low ??? less than 10%) 11-100 = mild levels of plaque detected with certainty (mild or minimal narrowing of heart arteries is likely) 101-400 = definite,at least moderate levels of plaque detected (relatively high risk of a heart attack within 3-5 years) >401-999 = extensive levels of plaque detected (high risk of heart attack, high levels of vascular disease are present, high likelihood of at least one significant coronary narrowing) *The calcium heart score quantifies the burden of coronary calcification/plaque in the coronary arteries. The calcium heart score is not able to evaluate the presence or burden of non-calcified (i.e. soft) plaque. There is no identifiable calcification in the aortic valve, mitral annulus or mitral valve, pericardium, or myocardium. Coronary CT Angiography The coronary arterial system is right dominant. Quantitative Stenosis Grading: Left Main (LM): The left main originates normally from the left sinus of Valsalva. The LM bifurcates into the left anterior descending artery and left circumflex artery. The LM is patent with no evidence of atherosclerosis. Left Anterior Descending (LAD) and Diagonal Branches: The LAD gives off 2 diagonal branch(es). The LAD and its branches are patent with no evidence of atherosclerosis. There is no evidence of LAD-myocardial bridge. Left Circumflex (LCX) and Obtuse Marginals (OM): The LCX gives off 2 Obtuse Marginal (OM) branch(es). The LCX and its branches are patent with no evidence of atherosclerosis. Right Coronary Artery (RCA): The RCA originates normally from the right sinus of Valsalva. The RCA gives off a posterior descending artery (PDA) and posterolateral (PL) branches. The RCA and its branches are patent with no evidence of atherosclerosis. Non-Coronary Cardiac Findings: Analysis of the left ventricular (LV) structure and function was performed after 3-D reconstruction of the LV from axial images, with user-corrected automatic contouring for assessment of LV volumes and user-defined reconstruction from oblique planes for measurement of 3-D cardiac structure and function. -The left ventricle systolic function is mildly reduced (LVEF 44%). -There is no left atrial appendage filling defect. Two right pulmonary veins and two left pulmonary veins drain normally into the left atrium. -No pericardial thickening or calcification. -Central and branch pulmonary arteries in the [id number] are unremarkable. -Thoracic aorta within the visualized thoracic aortic-branches in the [id number] is unremarkable. Extracardiac Structures No significant extra-cardiac findings. Note, however, that this study is focused on the cardiac findings. IMPRESSION -No coronary calcification with an Agatston score = 0 using the AJ-130 method. -No evidence of significant flow-limiting atherosclerosis of the coronary arteries. -No evidence of coronary anomalies or myocardial bridges. -CAD-RADS 0. Management recommendations per ACC/AHA guidelines*, as clinically appropriate. The left ventricle systolic function is mildly reduced (LVEF 44%). Correlation of LVEF on CT with new or recent TTE is recommended. *Recommendations: CAD RADS 0: Reassurance. Consider non-atherosclerotic causes of chest pain. CAD RADS 1: Consider non-atherosclerotic causes of chest pain. Consider preventive therapy and risk factor modification. CAD RADS 2: Consider non-atherosclerotic causes of chest pain. Consider preventive therapy and risk factor modification, particularly for patients with nonobstructive plaque in multiple segments. CAD RADS 3: Consider further functional testing. Consider symptom-guided anti-ischemic and preventive pharmacotherapy as well as risk factor modification per published guideline statements. CAD RADS 4A: Consider further functional testing or invasive coronary angiography with revascularization per published guideline statements. Consider symptom-guided anti-ischemic and preventive pharmacotherapy as well as risk factor modification per published guideline statements. CAD RADS 4B: Invasive coronary angiography recommended with revascularization per published guideline statements. Consider symptom-guided anti-ischemic and preventive pharmacotherapy as well as risk factor modification per published guideline statements. CAD RADS 5: Consider invasive angiography and/or viability assessment with revascularization per published guideline statements. Consider symptom-guided anti-ischemic and preventive pharmacotherapy as well as risk factor modification per published guideline statements. CRITICAL RESULT None COMMUNICATION Per this written report The coronary and cardiac findings of this CCTA were reviewed, reported, and signed by Cash Isbell MD (Garment Manufacturer) Conclusion Electronically signed by : Sonya Isbell MD 05/15/2023 22:12:04
[2023-05-15 12:04] VITALS: BMI 37.5
[2023-05-15 12:13] LABS: Urine Pregnancy, HCG Qual. Negative (Negative)
[2023-05-15] MEDS: IVABRADINE HCL 7.5MG TABLET PO (12:15)
[2023-05-15] MEDS: METOPROLOL TARTRATE 25MG TABLET 25 MG ×2 (12:16→13:03)
[2023-05-15] MEDS: METOPROLOL TARTRATE 50MG TABLET PO ×2 (12:16→13:03)
[2023-05-15 13:40] VITALS: BP 141/106; PULSE 79; RESP 16; O2SAT 100
[2023-05-15] MEDS: NITROGLYCERIN 0.4MG SL TABLET SL (13:40)
[2023-05-15 13:45] VITALS: BP 124/77; PULSE 71; RESP 16; O2SAT 99
[2023-05-15] MEDS: METOPROLOL TARTRATE 5MG/5ML VIAL 5 MG IV (13:45)
[2023-05-15 13:50] VITALS: BP 113/76; PULSE 63; RESP 17; O2SAT 97
[2023-05-15 13:55] VITALS: BP 99/69; PULSE 59; RESP 17; O2SAT 97
[2023-05-15] MEDS: SODIUM CHLORIDE 0.9% 10ML SYR (RAD ONLY) 10 ML IV (13:56)
[2023-05-15] MEDS: 0.9 % SODIUM CHLORIDE 50 ML VIAL IV (13:56)
[2023-05-15] MEDS: IOPAMIDOL-370 (76%);100ML BOTTLE 85 ML IV (13:56)
[2023-05-15 14:05] VITALS: BP 123/71; PULSE 59; RESP 16; TEMP 36.6; O2SAT 99
== END 2023-05-15 14:05 | disposition home or self-care (01) ==
PROVIDERS: PCP Nurse Practitioner Family; Visit Provider Nurse Practitioner Family
DX: R07.9 Chest pain, unspecified (principal); R94.31 Abnormal electrocardiogram [ECG] [EKG]; Z82.49 Family history of ischemic heart disease and other diseases of the circulatory system
CPT/HCPCS: 75571; 75574; 81025; Q9967

== ENCOUNTER 2023-05-30 15:18 | Outpatient (CLI) | payer OTHER, SELFPAY ==
--- NOTE | 2023-05-30 15:19 | MM_ITS ---
PROCEDURE INFORMATION: Exam: MG Bilateral Screening 3D Mammography Exam date and time: 05/30/2023 3:13 PM Age: 42 years old Clinical indication: Screening examination TECHNIQUE: Imaging protocol: Bilateral Screening tomosynthesis and 2D mammography including computer-aided detection (CAD) when performed. COMPARISON: MG MM DIG SCREENING MAMM BI W/CAD 05/15/2022 10:20 AM FINDINGS: MAMMOGRAPHY: Breast composition: The breasts are heterogeneously dense, which may obscure small masses. Mass: None. Architectural distortion: None. Calcifications: No suspicious calcifications. Asymmetric density: None. Skin thickening: None. Axillary adenopathy: None. IMPRESSION: No mammographic evidence of malignancy. Annual screening is recommended unless otherwise clinically indicated. ASSESSMENT: BI-RADS Category 1: Negative
== END 2023-05-30 23:59 ==
LOC: RAD 15:19
PROVIDERS: PCP Nurse Practitioner Family; Visit Provider Nurse Practitioner Family
DX: Z12.31 Encounter for screening mammogram for malignant neoplasm of breast (principal)
CPT/HCPCS: 77063; 77067

== ENCOUNTER 2023-06-06 09:14 | Outpatient (CLI) | payer OTHER, SELFPAY ==
--- NOTE | 2023-06-06 09:14 | CA_ITS ---
APPROVED REPORT EXAM: Comprehensive 2D, Doppler, and color-flow Echocardiogram Review Rn: Myriam Warren RT(R) Ht: 5 ft 0 in Wt: 187lbs BSA: 1.81 BP: 121/76 mmHg Indications: CP, Abn EKG, HTN, EF 44% on CCTA 04/2023. 2D Dimensions LVEF (Ardon's) 51.00 % F: 54 - 74 LV Volume 98.30 mL F: 46 - 106 LV Volume Index 54.3 mL/m2 F: 29 - 61 EF AP4 44.10 % EF AP2 57.4 % EF BP 51.0 % GL Strain -14.0 % M-Mode Dimensions RVDd 3.37 cm (0.9-2.6) LA Diam 3.75 cm (1.9-4.0) LVDd 4.34 cm (3.5-5.7) LVDs 3.25 cm (3.5-5.7) IVSd 0.72 cm (0.6-1.1) PWd 1.04 cm (0.6-1.1) EF (Teich) 49.90% FS 25.10% EDV (Teich) 84.90 mL ESV (Teich) 42.50 mL LV Diastology E Decel Time 193 (160-240 msec) E/A Ratio 1.3 Mitral Valve MV E Max Celestine. 83.0 (40-130 cm/s) MV A Velocity 66.0 (40-130 cm/s) E/A Ratio 1.26 MV PHT 57.0 ms Tricuspid Valve TR P. Velocity 229.00 cm/s RAP Estimate 10.00 mmHg RVSP 31.00 mmHg Left Ventricle The left ventricle is normal size. Left ventricular systolic function is mildly decreased. There is normal left ventricular wall thickness. There is mild global hypokinesis present. Grade 1 diastolic dysfunction is present. LVEF is 45%. Right Ventricle The right ventricle is normal size. The right ventricular systolic function is normal. Atria The left atrium size is normal. The right atrium size is normal. There is no Doppler evidence of interatrial shunt. Aortic Valve The aortic valve opens well. There is no aortic valvular stenosis. No aortic regurgitation is present. Mitral Valve The mitral valve is normal in structure. No evidence of mitral valve stenosis. There is no mitral valve regurgitation noted. Tricuspid Valve The tricuspid valve leaflets are thin and pliable. Mild tricuspid regurgitation. RVSP is 20-25 mmHg. Pulmonic Valve The pulmonary valve is normal in structure. Trace pulmonic regurgitation. Great Vessels The aortic root is normal in size. The ascending aorta is normal in size. IVC is normal in size and collapses >50% with inspiration. Pericardium There is no pericardial effusion. Other Information Study Quality: Fair Conclusion Mild reduction in LV systolic function (LVEF 45%). Mild TR. RVSP 20-25 mmHg. In the setting of mildly reduced LV systolic function on TTE and absence of coronary disease on CCTA, further evaluation with cardiac MRI (cardiomyopathy protocol) is recommended to evaluate for etiologies of nonischemic cardiomyopathy. Electronically signed by : Sonya Isbell MD 06/09/2023 01:16:29
== END 2023-06-06 23:59 ==
LOC: RT 09:14
PROVIDERS: PCP Nurse Practitioner Family; Visit Provider Physician Assistant
DX: R07.9 Chest pain, unspecified (principal); I51.9 Heart disease, unspecified; R94.31 Abnormal electrocardiogram [ECG] [EKG]; Z82.49 Family history of ischemic heart disease and other diseases of the circulatory system
CPT/HCPCS: 93306

== ENCOUNTER 2023-06-24 09:44 | Outpatient (CLI) | payer OTHER, SELFPAY ==
[2023-06-24] MEDS: SODIUM CHLORIDE 0.9% 50ML BAG 35 ML IV (13:36)
[2023-06-24] MEDS: GADOTERIDOL INJ 17ML SYRINGE 18 ML IV (13:36)
[2023-06-24] MEDS: SODIUM CHLORIDE 0.9% 10ML SYR (RAD ONLY) 10 ML IV (13:36)
== END 2023-06-24 23:59 | disposition home or self-care (01) ==
LOC: RAD 09:45
PROVIDERS: PCP Nurse Practitioner Family; Visit Provider Physician Assistant
DX: R07.9 Chest pain, unspecified (principal); I42.8 Other cardiomyopathies; R94.31 Abnormal electrocardiogram [ECG] [EKG]; I51.9 Heart disease, unspecified; Z82.49 Family history of ischemic heart disease and other diseases of the circulatory system
CPT/HCPCS: 75561; A9576

== ENCOUNTER 2023-09-10 07:36 | Outpatient (CLI) | payer OTHER, SELFPAY ==
[2023-09-10 08:16] LABS: Basophils # 0.1 K/mm3 (0-0.2); Basophils % 0.6 % (0.1-2.0); Eosinophils # 0.1 K/mm3 (0.0-0.4); Eosinophils % 1.8 % (0.1-12.0); Hemoglobin 11.5 g/dL (12.2-16.2); Lymphocytes # 2.5 K/mm3 (0.7-4.5); Lymphocytes % 34.6 % (10-50); Mean Corpuscular HGB Conc 32.7 g/dL (31.8-35.4); Mean Corpuscular Hemoglobin 30.1 pg (27.0-31.2); Mean Platelet Volume 7.8 fl (7.4-10.4); Monocytes # 0.3 K/mm3 (0.1-1.0); Monocytes % 4.5 % (1.7-9.3); Neutrophils # 4.1 K/mm3 (1.8-7.8); Neutrophils % 58.4 % (37.0-80.0); Platelet Count 194 K/mm3 (142-424); Red Blood Count 3.81 M/mm3 (4.20-5.40); Red Cell Distribution Width 13.7 % (11.5-17.5); White Blood Count 7.1 K/mm3 (4.8-10.8)
[2023-09-10 08:36] LABS: Alanine Aminotransferase 12 U/L (12-78); Albumin Level 3.6 g/dl (3.5-5.0); Albumin/Globulin Ratio 1.2 (1.1-1.8); Alkaline Phosphatase 75 U/L (38-126); Anion Gap 8.1 mEq/L (5-15); Aspartate Amino Transferase 21 U/L (14-36); Bilirubin,Total 0.5 mg/dl (0.2-1.3); Blood Urea Nitrogen 11 mg/dl (7-17); Calcium 8.8 mg/dl (8.4-10.2); Carbon Dioxide 26 mmol/L (22.0-30.0); Chloride 108 mmol/L (98-107); Cholesterol 208 mg/dl (140-200); Estimated Glomerular Filt Rate 79 ml/min (>60); GFR (African American) 95 ML/MIN (>60); Globulin 2.9 g/dL (1.3-3.2); Glucose 87 mg/dl (74-100); HDL Cholesterol 69 mg/dl (40-60); Potassium 4.1 mmoL/L (3.5-5.1); Sodium 138 mmol/L (136-145); Total Protein,Serum 6.5 g/dl (6.3-8.2); Triglycerides 203 mg/dl (30-150); VLDL Cholesterol 41 mg/dL (0-40)
[2023-09-10 08:49] LABS: Direct LDL Cholesterol 96.71 mg/dL (100-129)
[2023-09-10 08:55] LABS: Free Thyroxine Index 2.8 ug/dL (5.93-13.13); T4 (Thyroxine) 11.1 ug/dl (5.53-11.0); Triiodothryronine (T3) Uptake 25 % (23.5-40.5)
[2023-09-10 09:08] LABS: Thyroid Stimulating Hormone 2.24 uIU/mL (0.465-4.68)
== END 2023-09-10 23:59 | disposition home or self-care (01) ==
LOC: LAB 07:36
PROVIDERS: PCP Nurse Practitioner Family; Visit Provider Nurse Practitioner Obstetrics & Gynecology
DX: Z01.419 Encounter for gynecological examination (general) (routine) without abnormal findings (principal)
CPT/HCPCS: 36415; 80050; 80053; 80061; 84436; 84443; 84479; 85025

== ENCOUNTER 2024-05-07 10:02 | Outpatient (CLI) | payer OTHER, SELFPAY ==
[2024-05-07 09:36] LABS: Microscopic, Urine URINE MICROSCOPIC (MICROSCOPIC)
[2024-05-07 09:53] LABS: Basophils % 0.6 % (0.1-2.0); Eosinophils # 0.1 K/mm3 (0.0-0.4); Eosinophils % 1.9 % (0.1-12.0); Hematocrit 36.3 % (37.0-47.0); Hemoglobin 11.8 g/dL (12.2-16.2); Lymphocytes # 1.7 K/mm3 (0.7-4.5); Lymphocytes % 35.3 % (10-50); Mean Corpuscular HGB Conc 32.5 g/dL (31.8-35.4); Mean Corpuscular Volume 89.2 fl (81-99); Mean Platelet Volume 10.3 fl (7.4-10.4); Monocytes # 0.3 K/mm3 (0.1-1.0); Monocytes % 5.6 % (1.7-9.3); Neutrophils # 2.7 K/mm3 (1.8-7.8); Neutrophils % 56.2 % (37.0-80.0); Platelet Count 222 K/mm3 (142-424); Red Blood Count 4.07 M/mm3 (4.20-5.40); Red Cell Distribution Width 12.3 % (11.5-17.5); White Blood Count 4.8 K/mm3 (4.8-10.8)
[2024-05-07 10:08] LABS: Albumin Level 4.1 g/dl (3.5-5.0); Chloride 108 mmol/L (98-107); Sodium 138 mmol/L (136-145)
[2024-05-07 10:09] LABS: Potassium 4.4 mmoL/L (3.5-5.1)
[2024-05-07 10:11] LABS: Alanine Aminotransferase 16 U/L (12-78); Albumin/Globulin Ratio 1.5 (1.1-1.8); Alkaline Phosphatase 91 U/L (38-126); Anion Gap 10.4 mEq/L (5-15); Aspartate Amino Transferase 22 U/L (14-36); Bilirubin,Total 0.7 mg/dl (0.2-1.3); Blood Urea Nitrogen 8 mg/dl (7-17); Carbon Dioxide 24 mmol/L (22.0-30.0); Cholesterol 200 mg/dl (140-200); Estimated Glomerular Filt Rate 79 ml/min (>60); GFR (African American) 95 ML/MIN (>60); Globulin 2.7 g/dL (1.3-3.2); Iron 78 ug/dL (37-170); Total Protein,Serum 6.8 g/dl (6.3-8.2); Triglycerides 133 mg/dl (30-150); VLDL Cholesterol 27 mg/dL (0-40)
[2024-05-07 10:12] LABS: Calcium 8.8 mg/dl (8.4-10.2); Chol/HDL Ratio 2.9 (1-3.5); Glucose 91 mg/dl (74-100); HDL Cholesterol 69 mg/dl (40-60)
[2024-05-07 10:22] LABS: Total Iron Binding Capacity 418 ug/dL (265-497)
[2024-05-07 10:23] LABS: Direct LDL Cholesterol 100.46 mg/dL (100-129)
[2024-05-07 10:46] LABS: 25-OH Vitamin D, Total 25.2 ng/mL (30-100)
[2024-05-07 10:47] LABS: Free T4 (Free Thyroxine) 1.15 ng/dl (0.78-2.19)
[2024-05-07 10:49] LABS: Ferritin 51.4 ng/ml (6.24-137)
[2024-05-07 10:52] LABS: Appearance,Urine Clear (Clear); Bilirubin,Urine Negative (Negative); Blood, Urine 4+ (Negative); Color,Urine Yellow (Yellow); Glucose,Urine (UA) Negative (Negative); Ketones,Urine Trace (Negative); Nitrate,Urine Negative (Negative); Protein,Urine 30 (Negative); Specific Gravity, Urine >= 1.030 (1.005-1.030)
[2024-05-07 10:53] LABS: Bacteria,Urine Trace /lpf; Leukocyte Esterase,Urine Trace (Negative); RBC,Urine TNTC #/hpf (0-3); Squamous Epithelial Cell,Urine Occasional #/hpf (0-5)
[2024-05-07 10:54] LABS: HIV Combo NEGATIVE (Negative)
[2024-05-07 11:04] LABS: Hepatitis C Ab Qual. W/ RFX NEGATIVE (Negative)
[2024-05-07 11:22] LABS: Hemoglobin A1C 5.2 % (4.0-6.0)
[2024-05-07 12:18] LABS: Vitamin B12 244 pg/mL (239-931)
[2024-05-08 14:12] LABS: Cortisol,AM 21.5 ug/dL (6.2-19.4)
== END 2024-05-07 23:59 | disposition home or self-care (01) ==
LOC: LAB.DROPOF 10:02
PROVIDERS: PCP Nurse Practitioner Family; Visit Provider Nurse Practitioner Family
DX: Z00.00 Encounter for general adult medical examination without abnormal findings (principal); Z11.4 Encounter for screening for human immunodeficiency virus [HIV]; Z11.59 Encounter for screening for other viral diseases; Z13.1 Encounter for screening for diabetes mellitus; Z13.220 Encounter for screening for lipoid disorders; Z68.39 Body mass index [BMI] 39.0-39.9, adult; F41.9 Anxiety disorder, unspecified; F32.A Depression, unspecified; R53.83 Other fatigue; D50.9 Iron deficiency anemia, unspecified; I10 Essential (primary) hypertension; R41.3 Other amnesia; G47.33 Obstructive sleep apnea (adult) (pediatric); E11.9 Type 2 diabetes mellitus without complications; E66.9 Obesity, unspecified
CPT/HCPCS: 80053; 80061; 81001; 82306; 82533; 82607; 82728; 83036; 83540; 83550; 84439; 84443; 85025; 86803; 87086; 87389

== ENCOUNTER 2024-06-01 07:50 | Outpatient (CLI) | payer OTHER, SELFPAY ==
--- NOTE | 2024-06-01 08:00 | MM_ITS ---
PROCEDURE INFORMATION: Exam: MG Bilateral Screening 3D Mammography Exam date and time: 06/01/2024 8:06 AM Age: 43 years old Clinical indication: Screening exam. TECHNIQUE: Imaging protocol: Bilateral Screening tomosynthesis and 2D mammography including computer-aided detection (CAD) when performed. COMPARISON: 1. MG MM DIG SCREENING MAMM BI W/CAD 05/30/2023 3:13 PM 2. MG MM DIG SCREENING MAMM BI W/CAD 05/15/2022 10:20 AM FINDINGS: MAMMOGRAPHY: Breast composition: The breasts are heterogeneously dense, which may obscure small masses. Mass: No suspicious masses. Architectural distortion: None. Calcifications: No suspicious calcifications. Asymmetric density: None. Skin thickening: None. Axillary adenopathy: None. IMPRESSION: No mammographic evidence of malignancy. Annual screening is recommended unless otherwise clinically indicated. ASSESSMENT: BI-RADS Category 1: Negative.
== END 2024-06-01 23:59 | disposition home or self-care (01) ==
LOC: RAD 07:50
PROVIDERS: PCP Nurse Practitioner Family; Visit Provider Nurse Practitioner Family
DX: Z12.31 Encounter for screening mammogram for malignant neoplasm of breast (principal)
CPT/HCPCS: 77063; 77067

== ENCOUNTER 2024-06-15 14:53 | Outpatient (CLI) | payer OTHER, SELFPAY ==
--- NOTE | 2024-06-15 14:54 | CT_ITS ---
FINAL REPORT TECHNIQUE: Thin section axial images were obtained from skull base to vertex without contrast. Coronal reconstruction images were obtained from the axial data. Exam was performed using dose reduction techniques such as automated exposure control, adjustment of the mA and kV according to patient size, and use of iterative reconstruction technique. CLINICAL HISTORY: blurred vision FINDINGS: CT HEAD/BRAIN WITHOUT CONTRAST Thin section axial images were obtained from skull base to vertex without contrast. Coronal reconstruction images were obtained from the axial data. Exam was performed using dose reduction techniques such as automated exposure control, adjustment of the mA and kV according to patient size, and use of iterative reconstruction technique. There is no mass effect or midline shift. There is no hydrocephalus. There is no intracranial hemorrhage. The posterior fossa is without acute abnormality. The basilar cisterns are preserved. The soft tissues are without acute abnormality. No acute osseous abnormality is identified. IMPRESSION: No acute intracranial abnormality. CTA HEAD/BRAIN Thin section axial images were obtained through the brain after intravenous contrast injection. Multiplanar reconstructions were obtained from the axial data. This study was performed with techniques to keep radiation doses as low as reasonably achievable (ALARA). Individualized dose reduction techniques using automated exposure control or adjustment of mA and/or kV according to the patient's size were employed. The intracerebral portions of the carotid arteries are patent. The anterior and middle cerebral arteries are patent. The posterior cerebral arteries arise from the basilar artery. They are patent. The [place] is intact. The basilar artery is patent. The vertebral arteries are patent. There is no significant stenosis, aneurysm, or AVM Reviewed, Interpreted and Dictated by Anastasia Diaz MD Transcribed by Salena Rose Authenticated and [facility]
[2024-06-15 15:21] LABS: Blood Urea Nitrogen 8 mg/dl (7-17); Estimated Glomerular Filt Rate 69 ml/min (>60); GFR (African American) 83 ML/MIN (>60)
[2024-06-15] MEDS: SODIUM CHLORIDE 0.9% 10ML SYR (RAD ONLY) 10 ML IV (15:48)
[2024-06-15] MEDS: 0.9 % SODIUM CHLORIDE 50 ML VIAL IV (15:48)
[2024-06-15] MEDS: IOPAMIDOL-370 (76%);100ML BOTTLE 75 ML IV (15:48)
== END 2024-06-15 23:59 | disposition home or self-care (01) ==
LOC: RAD 14:54
PROVIDERS: PCP Nurse Practitioner Family; Visit Provider Nurse Practitioner Family
DX: R51.9 Headache, unspecified (principal); H53.8 Other visual disturbances
CPT/HCPCS: 36415; 70496; 82565; 84520; Q9967

== ENCOUNTER 2024-12-02 10:30 | Outpatient (CLI) | payer OTHER, SELFPAY | END 2024-12-02 23:59 | LOC: LAB.DROPOF 12-04 00:29 | PROVIDERS: PCP Nurse Practitioner Family; Visit Provider Nurse Practitioner Family | DX: M54.50 Low back pain, unspecified (principal); R34 Anuria and oliguria; R35.0 Frequency of micturition; R30.0 Dysuria; R39.89 Other symptoms and signs involving the genitourinary system | CPT/HCPCS: 87086; 87088; 87186 ==

== ENCOUNTER 2025-01-04 16:25 | Outpatient (CLI) | payer OTHER, SELFPAY | END 2025-01-04 23:59 | disposition home or self-care (01) | LOC: LAB.DROPOF 01-05 16:25 | PROVIDERS: PCP Nurse Practitioner Family; Visit Provider Nurse Practitioner Family | DX: N39.0 Urinary tract infection, site not specified (principal) | CPT/HCPCS: 87086 ==

== ENCOUNTER 2025-01-08 12:34 | Outpatient (CLI) | payer OTHER, SELFPAY | END 2025-01-08 23:59 | disposition home or self-care (01) | LOC: LAB 12:35 | PROVIDERS: PCP Nurse Practitioner Family; Visit Provider Nurse Practitioner Family | DX: R82.90 Unspecified abnormal findings in urine (principal) | CPT/HCPCS: 87086 ==